=== PATIENT | male | born 1950 | race Caucasian/White ===

== ENCOUNTER → 2018-10-26 14:34 | Outpatient (CLI) | payer MEDICARE, SELFPAY ==
--- NOTE | 2018-10-26 | DI.RAD.S_ITS ---
PROCEDURE: XR CERVICAL SPINE 2V OR 3V INDICATIONS: RADICULOPATHY TECHNIQUE: 3 view(s) of the cervical spine were acquired. COMPARISON: None. FINDINGS: Bones: No fractures or dislocations to the T1 level. The lateral masses of C1 appear intact on the odontoid view. No suspicious bony lesions. C5-6 and C6-7 moderately severe degenerative disc disease, mild ligamentous laxity levels grade 1 anterolisthesis of C4 on C5. Soft tissues: No prevertebral soft tissue swelling. IMPRESSION: There is moderately severe to severe degenerative disc disease at C5-6 and C6-7, with grade 1 anterolisthesis of C4 on C5. Dictated by: Jareth Olea M.D. on 10/26/2018 at 15:46 Approved by: Jareth Olea M.D. on 10/26/2018 at 15:47
== END ==
PROVIDERS: PCP Family Medicine; Visit Provider Family Medicine
DX: M50.122 Cervical disc disorder at C5-C6 level with radiculopathy (principal); M43.12 Spondylolisthesis, cervical region
CPT/HCPCS: 72040

== ENCOUNTER → 2018-11-03 16:00 | Outpatient (CLI) | payer MEDICARE, SELFPAY ==
--- NOTE | 2018-11-03 | DI.MRI.S_ITS ---
PROCEDURE: MR CERVICAL SPINE WO CON INDICATIONS: RADICULOPATHY TECHNIQUE: Noncontrast sagittal T1 spin echo and T2 fast spin echo, sagittal STIR, foraminal oblique sagittal T2 fast spin echo, and axial gradient echo or T2 fast spin echo through the cervical spine. COMPARISON: None. FINDINGS: Image quality: Excellent. Alignment and Curvature: There is straightening and mild reversal of normal cervical lordosis. Minimal anterolisthesis of C4 on C5 is seen. Bone Marrow: Marrow demonstrates normal overall signal. Spinal Cord: Visualized spinal cord has normal size and signal. No cerebellar tonsillar herniation. Paraspinous Soft Tissues: No paravertebral masses. Prevertebral soft tissues are normal in thickness. C2-C3: Normal appearance. C3-C4: Diffuse disc bulge and bilateral facet hypertrophic changes are seen with mild central canal stenosis and right-sided neuroforaminal narrowing. C4-C5: There is decreased intervertebral disc space and degenerative endplate changes are noted. Broad-based disc bulge and bilateral facet hypertrophic changes are seen with mild to moderate bilateral neuroforaminal narrowing and mild central canal stenosis. C5-C6: There is significant decrease loss of the disc height and moderate degenerative endplate changes. Broad-based disc bulge and bilateral facet hypertrophic changes are seen. Superimposed left lateral disc herniation is also seen. There is moderate central canal stenosis and moderate to severe left worse than right bilateral neuroforaminal narrowing. There is likely compression of bilateral C6 nerve roots. C6-C7: Decreased intervertebral disc space and degenerative endplate changes are seen. Broad-based disc bulge and bilateral facet hypertrophic changes are seen causing moderate central canal stenosis and moderate to severe bilateral neuroforaminal narrowing. There is compression of bilateral exiting C7 nerve roots. C7-T1: There is decreased intervertebral disc height and degenerative endplate changes. A mild diffuse disc bulge and bilateral uncinate hypertrophic changes are seen with mild central canal stenosis and mild bilateral neural foramina narrowing. IMPRESSION: 1. Grade 1 anterolisthesis of C4 on C5. No acute compression fracture. No marrow edema. No abnormal cervical spinal cord signal. 2. Degenerative disc bulge and bilateral facet hypertrophic changes throughout cervical spine causing [id number] central canal stenosis and moderate to severe neuroforaminal narrowing more prominent at C5-6 and C6-7 level as above. Dictated by: Niranjan Dinero M.D. on 11/04/2018 at 10:02 Approved by: Niranjan Dinero M.D. on 11/04/2018 at 10:20
== END ==
PROVIDERS: PCP Family Medicine; Visit Provider Family Medicine
DX: M50.11 Cervical disc disorder with radiculopathy, high cervical region (principal); M48.02 Spinal stenosis, cervical region; M43.12 Spondylolisthesis, cervical region
CPT/HCPCS: 72141

== ENCOUNTER → 2019-02-18 15:08 | Outpatient (CLI) | payer MEDICARE, SELFPAY ==
--- NOTE | 2019-02-18 | DI.RAD.S_ITS ---
PROCEDURE: XR CHEST 2V INDICATIONS: ACUTE BRONCHITIS TECHNIQUE: 2 views of the chest were acquired. COMPARISON: None. FINDINGS: Surgical changes and devices: None. Lungs and pleura: Lungs are clear. No pleural effusions or pneumothorax. Mediastinum: Mediastinal contours are normal. Heart size is normal. Bones and chest wall: No suspicious bony abnormalities. Soft tissues appear unremarkable. IMPRESSION: No acute disease Dictated by: Alli Ackerman M.D. on 02/18/2019 at 15:29 Approved by: Alli Ackerman M.D. on 02/18/2019 at 15:31
== END ==
PROVIDERS: PCP Family Medicine; Visit Provider Family Medicine
DX: J20.9 Acute bronchitis, unspecified (principal)
CPT/HCPCS: 71046

== ENCOUNTER 2019-03-04 05:28 | Day surgery (SDC) | payer MEDICARE, SELFPAY ==
[2019-02-25 12:53] VITALS: BMI 29.2
[2019-03-04] VITALS (21 sets, daily range): BP systolic 109–147; BP diastolic 41–88; PULSE 59–102; RESP 10–19; TEMP 36.1–37.1; O2SAT 90–97; BMI 29.2
--- NOTE | 2019-03-04 | DI.RAD.S_ITS ---
PROCEDURE: XR CERVICAL SPINE 2V OR 3V INDICATIONS: C5-6, C6-7 ACDF TECHNIQUE: Fluoroscopic images were obtained during an operative procedure and submitted for interpretation following the completion of the procedure. COMPARISON: [facility], MR, MR CERVICAL SPINE WO CON, 11/03/2018, 16:56. [facility] [place], CR, XR CERVICAL SPINE WITH OBLIQUES, 11/23/2018, 15:40. [facility], CR, XR CERVICAL SPINE 2V OR 3V, 10/26/2018, 14:41. FINDINGS: These fluoroscopic images were performed for intraoperative localization. On these images, anterior fixation hardware is placed C5-C7. Please correlate with intraoperative findings. IMPRESSION: Normal intraoperative examination. Dictated by: Brock Tuttle M.D. on 03/04/2019 at 9:42 Approved by: Brock Tuttle M.D. on 03/04/2019 at 9:43
[2019-03-04] MEDS: LACTATED RINGERS 1,000 ML 42 ML IV ×2 (07:15→09:05)
[2019-03-04] MEDS: ALBUTEROL/IPRATROPIUM 3 ML AMPUL INH (07:40)
--- NOTE | 2019-03-04 07:42 | PM.PREOP ---
Pre-operative Note Interval Note History & Physical reviewed/Exam performed by Physician: Yes Changes to H&P: No
[2019-03-04] MEDS: CEFAZOLIN 2 GM/100 ML FROZ.PIGGY IV ×3 (07:52→23:58)
--- NOTE | 2019-03-04 08:29 | SUR.OPER ---
Supine, head on gel donut. Arms padded with gel pads, tucked at sides, towel roll under shoulders. Safety belt at thigh. Legs uncrossed.
[2019-03-04] MEDS: BUPIVACAINE 0.25% W/ EPI 30 ML VIAL INJ (08:36)
--- NOTE | 2019-03-04 09:14 | CM.IDA ---
Addendum entered by JOSE Cervantes 03/05/19 16:30: DC 03.05.19, home w/spouse, no barriers, therapy team has cleared for home. VIRGIL Original Note: Discharge Planning/Care Management CM Discharge Assessment Start: 03/04/19 09:10 Freq: Status: Active Protocol: Document 03/04/19 09:11 VIRGIL (Rec: 03/04/19 09:14 VIRGIL [id number]) Discharge Planning Assessment Assigned Registered Nurses JOSE Urrutia DPOA/Assigned Designee Name Geri Brown, spouse Contact Information [phone] or [phone] Advance Directives? No History Provided By Medical Record Prior Living Arrangements House Household Members spouse Type of transporation used prior to Drives own vehicle admit Independent with ADL's Yes Is patient alert and oriented? Yes Comment Pt off the floor today for spinal surgery w/ Dr Chavez. DC needs pending progress w/ therapy team and further assessment. Pt and spouse plan for pt to return home once medically cleared. Discharge Plan Home Transportation Arrangement Family Review Status In Process
--- NOTE | 2019-03-04 10:46 | P.OP_ITS ---
Operative Date/Time/Diagnoses Date of procedure: 03/04/19 Time of procedure: 07:46 Pre-op diagnosis: 1. C5-6, C6-7 spinal stenosis 2. C5-6, C6-7 spondylosis with radiculopathy Post-op diagnosis: same Procedure & Clinicians Procedure: 1. C5-6 C6-7 anterior cervical diskectomy and fusion 2. C5-6 C6-7 anterior interbody cage placement 3. C5-6 C6-7 anterior instrumentation with plate and screw placement in C5-C6 and C7 vertebrae 4. Utilization of microsurgical technique and operating microscope Same procedure as scheduled: Yes Indications: Patient has been having chronic neck pain and worsening cervical radiculopathy. Patient failed multiple conservative management with worsening pain weakness and numbness in her upper extremity. Patient has been having difficulty performing activity of daily living. After discussing risks benefits of treatment options, patient elected proceed with surgery. Surgeon: Carlos Alberto Chavez Supervisor Electronic Coils: Krupa Ibarra Click Yes if Unassisted: No Anesthesia Type: General Operative Notes Closure Type: primary Specimen(s): none sent Prosthetic devices, grafts, tissues, transplants, or devices: Globus revolve screws, Rise cages Estimated Blood Loss (mL): 20 Blood products transfused: none Procedure in detail: Patient was seen in the preoperative area. Risks and benefits of the surgery was discussed with the patient. Operative consent was obtained and placed in the chart. Patient was then taken to the operative room. Prophylactic antibiotic was given less than 0.5 hr prior to skin incision. General anesthesia was administered. Patient was placed into a supine position on her radiolucent table. Bilateral shoulders were taped down to allow proper C- arm imaging. Anterior cervical area was prepped and draped in a sterile fashion. Time-out was performed at this time. Using lateral C-arm imaging, the level between C5 and C7 was identified and marked on patient's neck. A oblique incision from midline towards medial border of sternocleidomastoid muscle was made. The platysma muscle was incised in line with skin incision. Metzenbaum scissor was used to develop the plane between the medial border of sternocleidomastoid d and the strap muscles medially. The carotid sheath and its contents were identified and protected behind the hand- held retractor during the entire case. The plane between the carotid sheath and strap muscles was developed with Metzenbaum scissors. Dissection was made down to the level of the anterior cervical fascia. Longus colli muscle was incised on the anterior aspect of vertebral bodies bilaterally from C5-C7. Spinal needle was placed into the C5-6 disc space and confirmed with lateral C-arm imaging. Using microsurgical technique and operative microscope, anterior cervical diskectomy was performed at C5-6 and C6-7 level. This was done by removing the disc material, removing the anterior and posterior osteophytes posterior longitudinal ligaments along with performing bilateral foraminotomies at both levels. Patient was found to have severe central and foraminal stenosis at both levels. Patient's stenosis was fully decompressed after decompression was completed. After the diskectomy was completed, 2 anterior interbody cages were obtained. The cages were packed with DBM bone grafting material. One cage each along with the bone grafting material was then packed into the interbody spaces from C5-C7 with one cage into each interbody level. After the cages were placed, the anterior cervical plate was stabilized to the C5-C7 vertebrae using 2 screws at each each level. Total 6 screws were placed. After confirming placement of the hardware with AP and lateral C-arm imaging, the screws were locked into the plate using the locking mechanism and torque limiting screwdriver. After the hardware was placed and confirmed with AP and lateral C-arm imaging, the wound was irrigated with sterile normal saline. The platysma muscle and the subcutaneous tissue was closed with 2-0 Vicryl. The skin was closed with 4-0 Monocryl and Steri-Strips. Patient tolerated the procedure well. Patient was transferred recovery room in stable condition. There were no complications. Complications: none Post-operative Condition: stable Disposition: PACU Plan for aftercare: Admit to inpatient hospital
[2019-03-04] MEDS: ALBUTEROL 2.5 MG/3 ML NEB (ADULT) INH (10:57)
[2019-03-04] MEDS: HYDROMORPHONE 2 MG INJ IV ×4 (11:06→11:55)
[2019-03-04] MEDS: hydrOXYzine 50 MG/ML INJ 25 MG IM (11:13)
--- NOTE | 2019-03-04 11:38 | SUR.PHASEI ---
Pt arrived restless, changing positions frequently independently. Medicated for pain. Lungs congested, Dr. Toussaint notified and albuterol neb ordered and given. Lungs still congested, Dr. Toussaint notified.
--- NOTE | 2019-03-04 12:01 | SUR.PHASEI ---
Report given to Mey
--- NOTE | 2019-03-04 12:03 | SUR.PHASEI ---
Asssumed care of pt at this time. Pt sitting up in bed, alert and responding to RN when spoken to. Drsg observed to be c/d/i. Cervical collar in place. Iv site clear and infusing without difficultly.
--- NOTE | 2019-03-04 12:34 | SUR.PHASEI ---
Report called to ZACK Deleon on acute care floor. pt in stable condition, vss and being transferred to floor at this time.
--- NOTE | 2019-03-04 12:46 | SUR.PHASEI ---
pt transferred to acute care floor. pt alert and talking to RN during transport. Bedside report given to ZACK Deleon upon arrival to room. Transferred care of pt to ZACK Deleon at that time.
[2019-03-04] MEDS: OXYCODONE IR 5 MG TABLET 10 MG PO ×2 (13:32→19:41)
[2019-03-04] MEDS: hydrOXYzine pamoate 25 MG CAPSULE PO ×2 (13:33→22:27)
[2019-03-04] MEDS: SODIUM CHLORIDE 0.9% 1,000 ML 100 ML IV (13:34)
--- NOTE | 2019-03-04 16:59 | PT.IIE ---
Current Diagnoses Spinal stenosis, cervical region (03/04/19) Other biomechanical lesions of cervical region (03/04/19) Surgery Performed Operation Date: 03/04/19 07:45 Actual Procedures p C5-6,C6-7 ACDF w/ anterior instrumentation - Carlos Alberto Chavez MD Surgical History (Last Updated 02/25/19 @ 13:16 by Hazel Dumont, RN) History of ankle surgery (Acute ~2005) Hx of hernia repair (Acute ~1996) Hx of lithotripsy (Acute ~1986) Medical History (Last Updated 02/25/19 @ 13:16 by Hazel Dumont RN) Anxiety (Acute) Asthma (Acute) Depression (Acute) Folliculitis (Acute) HLD (hyperlipidemia) (Acute) HTN (hypertension) (Acute) Hypothyroid (Acute) Kidney stone (Acute ~1986) Sciatica (Acute) Tingling (Acute) Physical Therapy Inpatient Evaluation/Re-Eval M1 PT/OT-IP Prior Functional Status Start: 03/04/19 14:56 Freq: NEEDED Status: Active Protocol: Document 03/04/19 16:42 AW (Rec: 03/04/19 16:58 AW [id number]) Medical Review Prior Functional Status Medical History Reviewed Yes Diet/Fluid Consistency Regular Communication Able to make needs known Mobility and Gait Pt was independent with all mobility, no need for assistive device and no limit to ambulation distance. Activities of Daily Living and IADL's Independent Social History Household Members spouse Living Arrangements House Number of Floors (Floors) Two Floors Number of Stairs To Enter/Railing? 13 BASIL with narrow bilateral rails. 17 steps from main level to second level inside with R rail ascending Home Environment Standard Height Toilet,Walk in Shower,Tub/Shower Home Equipment Hand Held Shower,Grab Bars In Shower Employment Status Retired Additional Social History Comment Pt lives with his spouse who is able and available to assist 24/7 as needed M2 PT-IP Current Condition Start: 03/04/19 14:56 Freq: NEEDED Status: Active Protocol: Document 03/04/19 16:42 AW (Rec: 03/04/19 16:58 AW [id number]) Physical Therapy Current Condition Current Condition Evaluation Date 03/04/19 Treatment Diagnosis C5-6 C6-7 ACDF, impaired mobility Onset Date 03/04/19 Precautions Cervical Spine Precautions Soft Collar for Comfort,No Heavy Lifting,Log Roll Brace soft collar Weight Bearing Status Weight Bearing Status Full Weight Bearing M3 PT-IP Subjective Start: 03/04/19 14:56 Freq: NEEDED Status: Active Protocol: Document 03/04/19 16:42 AW (Rec: 03/04/19 16:58 AW [id number]) Subjective Physical Therapy Visit Type Type Initial Evaluation Visit Start Time 16:00 Visit Stop Time 16:36 Total Visit Minutes 36 Notes Pt seen with spouse at bedside Number of BELT REPAIRER Visits 0 Physical Therapy Visit Comments Patient Comments Pt anxious to get moving Patient Goals Pt wishes to discharge home with his 's help Therapy Pain Assessment Pain When Pain Assessed During Mobility Pain Present Pain Present Pain Reported Location Neck, shoulders Intensity 3 Scale Used Numeric (1 - 10) Pain Management Techniques Re-positioning,Timing of Activity with Medications M4 PT-IP Mobility and Gait Start: 03/04/19 14:56 Freq: NEEDED Status: Active Protocol: Document 03/04/19 16:42 AW (Rec: 03/04/19 16:58 AW [id number]) PT-Bed Mobility Assessment Rolling Type of Rolling Log Rolling Level of Assist Independent Supine to Sit Supine to Sit Independent Sit to Supine Sit to Supine Independent Scooting Scooting to Edge of Bed Independent PT-Transfer Assessment Sit to and From Stand Sit to and from Stand Standby Assistance Equipment Transfer Assistive Device Gait Belt Orthotic/Prosthetic Devices or Brace: Yes Transfers Transfer Destination Bed,Chair Transfer Technique pt ambulated without AD Transfer Ability Level of Assist Standby Assistance Comments Mobility Comments Pt required SBA for transfers due to impulsivity. Pt is extremely garrulous and easily distracted. Gait Assessment Gait Gait Assistance Required: Standby Assistance Distance (Feet) 220 Able to Maintain Weight Bearing Status Yes During Gait Assistive Devices Assistive Device Gait Belt Orthotic/Prosthetic Devices or Brace: Yes Gait Deviations General Gait Pattern Antalgic,Decreased Stride Length,Decreased Feet Clearance,Wide Based Gait Factors Limiting Gait Function Factors Limiting Gait Function Pain,Poor Safety Awareness Comments Gait Comments Pt required SBA for ambulation 220 feet without assistive device. He did demonstrate good attention to precautions, including avoiding excessive cervical range of motion. Stair Climbing Assessment Evaluation Level of Assist On Stairs Standby Assistance Devices Stair Climbing Assistive Devices Left Railing,Right Railing Technique/Endurance Stair Climbing Direction Ascend and Descend Stair Climbing Technique Step Over Step Number of Steps Climbed 3 Query Text: Stair Climbing Set # Repetitions (reps) 5 Comments Stair Climbing Comments Pt managed stairs with bilateral rails and with R rail only SBA. PT-Balance Assessment Sitting Balance and Reactions Static Sitting Balance Ability Normal Dynamic Sitting Balance Ability Normal Standing Balance and Reactions Static Standing Balance Ability Good Dynamic Standing Balance Ability Good Device Used none M5 PT-IP Objective Assessments Start: 03/04/19 14:56 Freq: NEEDED Status: Active Protocol: Document 03/04/19 16:42 AW (Rec: 03/04/19 16:58 AW [id number]) Orientation Orientation/Cognition Level of Alertness Alert Orientation Name,Day of Week,Place, Situation Language Function Ability No Deficits Noted Safety Awareness Decreased Safety Awareness Memory Description No Deficits Noted Gross Range of Motion Upper Extremity ROM Assessment Within Functional Limits Lower Extremity ROM Assessment Within Functional Limits Strength Upper Extremity Strength Assessment Left Impaired Hand unable to extend 3rd, 4th digits left hand Lower Extremity Strength Assessment Within Functional Limits Coordination Assessment Gross Coordination Gross Coordination WNL Sensation Assessment Sensation Gross Sensation WNL M6 PT-IP Treatment Start: 03/04/19 14:56 Freq: NEEDED Status: Active Protocol: Document 03/04/19 16:42 AW (Rec: 03/04/19 16:58 AW [id number]) Physical Therapy Treatment Education Education Provided Precautions,Weight Bearing Status,Post-Op Packet,Safety Brace Education [place],Patient, Caregiver Other Treatments Other Treatment Performed Reviewed PT plan of care, swallow considerations (with handout), cervical precautions , safety with stair management , and rationale for soft collar. M7 PT-IP Assessment and Plan Start: 03/04/19 14:56 Freq: NEEDED Status: Active Protocol: Document 03/04/19 16:42 AW (Rec: 03/04/19 16:58 AW [id number]) PT Summary Assessment and Plan Potential Rehabilitation Potential Excellent Status of Condition at Evaluation Evolving Summary Impairments Pain,ROM,Strength,Transfers, Gait Assessment Summary Pt is an active 68 yo man seen for PT evaluation on POD0 following ACDF. PLOF: Pt was independent in all regards. CLOF: Pt presents with impulsivity and poor safety awareness. This therapist found the patient standing next to his chair after discussing with him the need to use his call light for all mobility needs. In terms of mobility, pt required no more than SBA and PT anticipates he will meet the functional goals of this plan of care and safely discharge home with spouse assist once medically cleared. Goals Bed Mobility Goal Independent Transfer Goal Independent Gait Goal Independent Gait Distance 300 Other Goals up/down 17 steps with R rail ascending SBA Days to Meet Goals 1 Frequency of Treatment Frequency Of Treatment Twice a Day Treatment Plan Physical Therapy Treatment Plan Bed Mobility Training,Transfer Training,Gait Training, Therapeutic Exercise,Balance Retraining,Post Op Education, Discharge Planning,Hot or Cold Pack Recommendations To Nursing Amount of Assist Needed Standby Assistance Discharge Recommendations PT Discharge Recommendations Home with Assistance, Outpatient PT
--- NOTE | 2019-03-04 17:03 | PT.IIE ---
Current Diagnoses Spinal stenosis, cervical region (03/04/19) Other biomechanical lesions of cervical region (03/04/19) Surgery Performed Operation Date: 03/04/19 07:45 Actual Procedures p C5-6,C6-7 ACDF w/ anterior instrumentation - Carlos Alberto Chavez MD Surgical History (Last Updated 02/25/19 @ 13:16 by Hazel Dumont, RN) History of ankle surgery (Acute ~2005) Hx of hernia repair (Acute ~1996) Hx of lithotripsy (Acute ~1986) Medical History (Last Updated 02/25/19 @ 13:16 by Hazel Dumont RN) Anxiety (Acute) Asthma (Acute) Depression (Acute) Folliculitis (Acute) HLD (hyperlipidemia) (Acute) HTN (hypertension) (Acute) Hypothyroid (Acute) Kidney stone (Acute ~1986) Sciatica (Acute) Tingling (Acute) Physical Therapy Inpatient Evaluation/Re-Eval M1 PT/OT-IP Prior Functional Status Start: 03/04/19 14:56 Freq: NEEDED Status: Active Protocol: Document 03/04/19 16:42 AW (Rec: 03/04/19 16:58 AW [id number]) Medical Review Prior Functional Status Medical History Reviewed Yes Diet/Fluid Consistency Regular Communication Able to make needs known Mobility and Gait Pt was independent with all mobility, no need for assistive device and no limit to ambulation distance. Activities of Daily Living and IADL's Independent Social History Household Members spouse Living Arrangements House Number of Floors (Floors) Two Floors Number of Stairs To Enter/Railing? 13 BASIL with narrow bilateral rails. 17 steps from main level to second level inside with R rail ascending Home Environment Standard Height Toilet,Walk in Shower,Tub/Shower Home Equipment Hand Held Shower,Grab Bars In Shower Employment Status Retired Additional Social History Comment Pt lives with his spouse who is able and available to assist 24/7 as needed M2 PT-IP Current Condition Start: 03/04/19 14:56 Freq: NEEDED Status: Active Protocol: Document 03/04/19 16:42 AW (Rec: 03/04/19 16:58 AW [id number]) Physical Therapy Current Condition Current Condition Evaluation Date 03/04/19 Treatment Diagnosis C5-6 C6-7 ACDF, impaired mobility Onset Date 03/04/19 Precautions Cervical Spine Precautions Soft Collar for Comfort,No Heavy Lifting,Log Roll Brace soft collar Weight Bearing Status Weight Bearing Status Full Weight Bearing M3 PT-IP Subjective Start: 03/04/19 14:56 Freq: NEEDED Status: Active Protocol: Document 03/04/19 16:42 AW (Rec: 03/04/19 16:58 AW [id number]) Subjective Physical Therapy Visit Type Type Initial Evaluation Visit Start Time 16:00 Visit Stop Time 16:36 Total Visit Minutes 36 Notes Pt seen with spouse at bedside Number of PHYSICIAN GENERAL INTERNAL MEDICINE Visits 0 Physical Therapy Visit Comments Patient Comments Pt anxious to get moving Patient Goals Pt wishes to discharge home with his 's help Therapy Pain Assessment Pain When Pain Assessed During Mobility Pain Present Pain Present Pain Reported Location Neck, shoulders Intensity 3 Scale Used Numeric (1 - 10) Pain Management Techniques Re-positioning,Timing of Activity with Medications M4 PT-IP Mobility and Gait Start: 03/04/19 14:56 Freq: NEEDED Status: Active Protocol: Document 03/04/19 16:42 AW (Rec: 03/04/19 16:58 AW [id number]) PT-Bed Mobility Assessment Rolling Type of Rolling Log Rolling Level of Assist Independent Supine to Sit Supine to Sit Independent Sit to Supine Sit to Supine Independent Scooting Scooting to Edge of Bed Independent PT-Transfer Assessment Sit to and From Stand Sit to and from Stand Standby Assistance Equipment Transfer Assistive Device Gait Belt Orthotic/Prosthetic Devices or Brace: Yes Transfers Transfer Destination Bed,Chair Transfer Technique pt ambulated without AD Transfer Ability Level of Assist Standby Assistance Comments Mobility Comments Pt required SBA for transfers due to impulsivity. Pt is extremely garrulous and easily distracted. Gait Assessment Gait Gait Assistance Required: Standby Assistance Distance (Feet) 220 Able to Maintain Weight Bearing Status Yes During Gait Assistive Devices Assistive Device Gait Belt Orthotic/Prosthetic Devices or Brace: Yes Gait Deviations General Gait Pattern Antalgic,Decreased Stride Length,Decreased Feet Clearance,Wide Based Gait Factors Limiting Gait Function Factors Limiting Gait Function Pain,Poor Safety Awareness Comments Gait Comments Pt required SBA for ambulation 220 feet without assistive device. He did demonstrate good attention to precautions, including avoiding excessive cervical range of motion. BP 154/93 in sitting, 149/81 after activity. SpO2 on 4L via NC was 96%. On 2L, SpO2 was 94%. Left pt sitting up in chair. Notified RN of VS and suggested a chair alarm may be appropriate for this pt. Left pt up in chair with at bedside, call light and table within reach. Stair Climbing Assessment Evaluation Level of Assist On Stairs Standby Assistance Devices Stair Climbing Assistive Devices Left Railing,Right Railing Technique/Endurance Stair Climbing Direction Ascend and Descend Stair Climbing Technique Step Over Step Number of Steps Climbed 3 Query Text: Stair Climbing Set # Repetitions (reps) 5 Comments Stair Climbing Comments Pt managed stairs with bilateral rails and with R rail only SBA. PT-Balance Assessment Sitting Balance and Reactions Static Sitting Balance Ability Normal Dynamic Sitting Balance Ability Normal Standing Balance and Reactions Static Standing Balance Ability Good Dynamic Standing Balance Ability Good Device Used none M5 PT-IP Objective Assessments Start: 03/04/19 14:56 Freq: NEEDED Status: Active Protocol: Document 03/04/19 16:42 AW (Rec: 03/04/19 16:58 AW [id number]) Orientation Orientation/Cognition Level of Alertness Alert Orientation Name,Day of Week,Place, Situation Language Function Ability No Deficits Noted Safety Awareness Decreased Safety Awareness Memory Description No Deficits Noted Gross Range of Motion Upper Extremity ROM Assessment Within Functional Limits Lower Extremity ROM Assessment Within Functional Limits Strength Upper Extremity Strength Assessment Left Impaired Hand unable to extend 3rd, 4th digits left hand Lower Extremity Strength Assessment Within Functional Limits Coordination Assessment Gross Coordination Gross Coordination WNL Sensation Assessment Sensation Gross Sensation WNL M6 PT-IP Treatment Start: 03/04/19 14:56 Freq: NEEDED Status: Active Protocol: Document 03/04/19 16:42 AW (Rec: 03/04/19 16:58 AW [id number]) Physical Therapy Treatment Education Education Provided Precautions,Weight Bearing Status,Post-Op Packet,Safety Brace Education [place],Patient, Caregiver Other Treatments Other Treatment Performed Reviewed PT plan of care, swallow considerations (with handout), cervical precautions , safety with stair management , and rationale for soft collar. M7 PT-IP Assessment and Plan Start: 03/04/19 14:56 Freq: NEEDED Status: Active Protocol: Document 03/04/19 16:42 AW (Rec: 03/04/19 16:58 AW [id number]) PT Summary Assessment and Plan Potential Rehabilitation Potential Excellent Status of Condition at Evaluation Evolving Summary Impairments Pain,ROM,Strength,Transfers, Gait Assessment Summary Pt is an active 68 yo man seen for PT evaluation on POD0 following ACDF. PLOF: Pt was independent in all regards. CLOF: Pt presents with impulsivity and poor safety awareness. This therapist found the patient standing next to his chair after discussing with him the need to use his call light for all mobility needs. In terms of mobility, pt required no more than SBA and PT anticipates he will meet the functional goals of this plan of care and safely discharge home with spouse assist once medically cleared. Goals Bed Mobility Goal Independent Transfer Goal Independent Gait Goal Independent Gait Distance 300 Other Goals up/down 17 steps with R rail ascending SBA Days to Meet Goals 1 Frequency of Treatment Frequency Of Treatment Twice a Day Treatment Plan Physical Therapy Treatment Plan Bed Mobility Training,Transfer Training,Gait Training, Therapeutic Exercise,Balance Retraining,Post Op Education, Discharge Planning,Hot or Cold Pack Recommendations To Nursing Amount of Assist Needed Standby Assistance Discharge Recommendations PT Discharge Recommendations Home with Assistance, Outpatient PT
[2019-03-04] MEDS: ATORVASTATIN 20 MG TABLET 40 MG PO (20:35)
[2019-03-04] MEDS: LEVOTHYROXINE 50 MCG TABLET PO (20:36)
[2019-03-04] MEDS: FLUoxetine 20 MG CAPSULE 40 MG PO (20:36)
[2019-03-04] MEDS: hydroCHLOROthiazide 25 MG TABLET PO (20:38)
[2019-03-04] MEDS: LISINOPRIL 20 MG TABLET PO (20:39)
[2019-03-05] MEDS: OXYCODONE IR 5 MG TABLET 10 MG PO ×3 (00:01→09:17)
[2019-03-05] MEDS: SODIUM CHLORIDE 0.9% 1,000 ML 100 ML IV (00:08)
[2019-03-05] MEDS: ALBUTEROL 2.5 MG/3 ML NEB (ADULT) INH ×2 (00:28→09:27)
[2019-03-05 00:30] VITALS: PULSE 91; RESP 16; O2SAT 97
--- NOTE | 2019-03-05 02:25 | PC.NURSE ---
Addendum entered by Bailey Martinez R.N. 03/05/19 05:34: States pain is now increased to 6/10 so medicated with Vistaril. Offered ice pack but patient declines. Addendum entered by Bailey Martinez R.N. 03/05/19 04:31: Patient states he was able to sleep for past couple hours but now states pain is 5/10 and requests/medicated with Oxycodone. Original Note: 0010 Patient is alert and oriented. Breath sounds tight and diminished with expiratory wheezes throughout; RA sat 96% Coughing intermittently which is exacerbating his pain. Requests to have albuterol neb so Dr Albright contacted and order received for neb and RT to eval and treat. HRR but intermittently tachy; 102 earlier and now 99. Denies nausea. Denies difficulty swallowing. Complains of 8/10 pain in anterior neck; medicated with Oxycodone. Dressing with serosanguinous drainage but no leakage; wearing soft cervical collar. BT present but denies flatus. Independent with mobility. Voiding per urinal; denies dysuria, frequency or urgency. Refusing to wear SCD's despite information regarding DVT prevention; reminded to ankle wave when awake. Fall risk score is low
[2019-03-05 04:40] VITALS: BP 116/74; PULSE 85; RESP 18; TEMP 36.6; O2SAT 95
[2019-03-05] MEDS: hydrOXYzine pamoate 25 MG CAPSULE PO (05:33)
--- NOTE | 2019-03-05 08:13 | P.DS_ITS ---
History of Present Illness History of Present Illness Date Patient Seen: 03/05/19 Time Patient Seen: 08:00 Chief complaint: [id number] Narrative: Patient has been having chronic neck pain and worsening cervical radiculopathy. Patient failed multiple conservative management with worsening pain weakness and numbness in her upper extremity. Patient has been having difficulty performing activity of daily living. After discussing risks benefits of treatment options, patient elected proceed with surgery. POD 1 s/p ACDF with Dr. Chavez. Patient complains of pain in incision site. Pain is well managed. Mobilizing with PT. Voiding without difficulty or assistance. No other complaints Patient denies fever, chills, numbness, tingling, chest pain, shortness of breath, urinary/bowel incontinence. Discharge Providers Provider Date of admission: 03/04/19 05:28 Discharge Date: 03/05/19 Primary care physician: Kashif Evangelista MD Consults: 03/04/19 12:58 Consult to Occupational Therapy Evaluate & Treat Comment: Physician Instructions: Evaluate and treat Consult to Physical Therapy Evaluate & Treat Comment: Physician Instructions: Evaluate and Treat 03/05/19 00:13 Consult to Respiratory Therapy Evaluate & Treat Comment: Physician Instructions: Evaluate and treat Discharge provider: Ang Elias PA-C Summary Hospital Course Discharge Diagnosis: s/p ACDF anxiety asthma depression folliculitis HLD HTN Hypothyroid Kidney stone Sciatica Tingling Hospital Course: Patient admitted to hosptial s/p ACDF w Dr. Chavez. POD 1 patient was ready for discharge home. Hospital course was unremarkable. Pain was well managed. Given prescriptions for vistaril, oxycodone and naproxen. Patient mobilizing with PT prior to discharge. Voiding without difficulty or assistance prior to discharge. Status at Discharge Cognitive/behavioral status at discharge: oriented Functional status at discharge: uses cane/walker Overall status at discharge: patient is progressing back to baseline Time Spent with Patient Time spent: Less than 30 minutes Exam Vital Signs (past 8 hours): - 03/05/19 00:30 03/05/19 04:40 Temperature 97.9 F Pulse Rate 91 H 85 Respiratory Rate 16 18 Blood Pressure 116/74 Pulse Oximetry 97 95 Oxygen Delivery Method Room Air Oxygen Flow Rate 0 Narrative Exam Narrative: 68 year old male sitting comfortably in bed, in no apparent distress. A&Ox3. anterior neck dressing CDI. sensory function grossly intact to light touch in UE bl. full AROM, strength 5/5 UE bl. Discharge Plan Discharge Plan Patient Disposition: Home Discharge Med Rec/Prescriptions Prescriptions: New oxycodone 10 mg tablet 10 mg PO Q4-6H PRN (Reason: pain (scale score 7-10)) Qty: 60 RF: 0 hydroxyzine pamoate [Vistaril] 25 mg capsule 25 mg PO Q6-8H PRN (Reason: muscle spasm) Qty: 40 RF: 0 naproxen 500 mg tablet 500 mg PO BID Qty: 60 RF: 0 Continued fluoxetine [Prozac] 40 mg Capsule 40 mg PO BEDTIME RF: 0 atorvastatin 40 mg Tablet 40 mg PO BEDTIME RF: 0 levothyroxine [Synthroid] 50 mcg Tablet 50 mcg PO BEDTIME RF: 0 lisinopril-hydrochlorothiazide 20-25 mg Tablet 1 tab PO BEDTIME RF: 0 Symbicort 80-4.5 mcg/actuation Hfa Aerosol Inhaler 2 puff INHALATION BID RF: 0 Discontinued ibuprofen 200 mg Tablet 400 mg PO Q6H PRN (Reason: Pain) RF: 0 Follow up/Referrals: Carlos Alberto Chavez MD [Physician] - 03/17/19 4:00 pm (Both follow up apoontments are at the [facility] office in [place] 04/07 1:20pm [facility] office) Kashif Evangelista MD [Primary Care Provider] - Discharge Orders: Discharge (Order); Ordered 03/05/19 Ordered By: Reza Elias Provider Discharge Instructions Diet: Regular Activity: no excessive bending, twisting, lifting Cold/Heat Therapy: continue cold/heat therapy as needed Skin/Wound/Dressing Care Report to your healthcare provider any signs of infection, such as:: chills, fever, increased pain, unusual drainage and unusual redness Dressing: keep dressing dry. if saturated, contact the office Visit Report/Discharge Packet Instructions: How to Prevent Falls, DI for Postoperative Pain, DI for Anterior Cervical Discectomy and Fusion Stand Alone Forms: Surgery Discharge Visit Report Forms: Patient Portal/API, Stroke Signs & Symptoms Discharge Data Primary Care Provider: Kashif Evangelista Attending Provider: Carlos Alberto Chavez Discharges patient from system. Discharge Date/Time: 03/05/19 11:21
[2019-03-05 08:25] VITALS: BP 125/80; PULSE 100; RESP 18; TEMP 36.6; O2SAT 95
[2019-03-05] MEDS: ALBUTEROL/IPRATROPIUM 3 ML AMPUL INH (09:18)
[2019-03-05 09:20] VITALS: PULSE 95; RESP 16; O2SAT 92
--- NOTE | 2019-03-05 10:02 | OT.IP.EVAL ---
Current Diagnoses Spinal stenosis, cervical region (03/04/19) Other biomechanical lesions of cervical region (03/04/19) Surgery Performed Operation Date: 03/04/19 07:45 Actual Procedures p C5-6,C6-7 ACDF w/ anterior instrumentation - Carlos Alberto Chavez MD Past Medical History (Last Updated 02/25/19 @ 13:16 by Hazel Dumont RN) Anxiety (Acute) Asthma (Acute) Depression (Acute) Folliculitis (Acute) HLD (hyperlipidemia) (Acute) HTN (hypertension) (Acute) Hypothyroid (Acute) Kidney stone (Acute ~1986) Sciatica (Acute) Tingling (Acute) Surgical History (Last Updated 02/25/19 @ 13:16 by Hazel Dumont, RN) History of ankle surgery (Acute ~2005) Hx of hernia repair (Acute ~1996) Hx of lithotripsy (Acute ~1986) Occupational Therapy Inpatient Evaluation/Re-Eval M1 PT/OT-IP Prior Functional Status Start: 03/05/19 12:14 Freq: NEEDED Status: Active Protocol: Document 03/05/19 10:02 [facility] (Rec: 03/05/19 12:27 [facility] [id number]) Medical Review Prior Functional Status Medical History Reviewed Yes Diet/Fluid Consistency Regular Communication Able to make needs known Mobility and Gait Pt was independent with all mobility, no need for assistive device and no limit to ambulation distance. Activities of Daily Living and IADL's Independent Social History Household Members spouse Living Arrangements House Number of Floors (Floors) Two Floors Number of Stairs To Enter/Railing? 13 BASIL with narrow bilateral rails. 17 steps from main level to second level inside with R rail ascending Home Environment Standard Height Toilet,Walk in Shower,Tub/Shower Home Equipment Hand Held Shower,Grab Bars In Shower Employment Status Retired Additional Social History Comment Pt lives with his spouse who is able and available to assist / as needed M2 OT-IP Current Condition Start: 03/05/19 12:14 Freq: Status: Active Protocol: Document 03/05/19 10:02 [facility] (Rec: 03/05/19 12:27 [facility] [id number]) Occupational Therapy Current Condition Current Condition Evaluation Date 03/05/19 Treatment Diagnosis s/p C5-6, C6-7 ACDF with ant instr. Diagnosis Onset Date 03/04/19 Post Operative Precautions Cervical Spine Precautions Soft Collar for Comfort,No Heavy Lifting,Log Roll M3 OT- IP Subjective and Pain Start: 03/05/19 12:14 Freq: Status: Active Protocol: Document 03/05/19 10:02 [facility] (Rec: 03/05/19 12:27 [facility] [id number]) OT- Subjective Occupational Therapy Visit Type Type Initial Evaluation Visit Start Time 10:02 Visit Stop Time 10:20 Total Visit Minutes 18 Occupational Therapy Visit Comments Patient Comments Pt willing to do OT eval. Patient/Caregiver Goals To go home. OT Pain Assessment Pain When Pain Assessed At Rest Pain Present Pain Present Pain Reported Location Neck Intensity 5 Scale Used Numeric (1 - 10) M4 OT- IP ADL's Start: 03/05/19 12:14 Freq: Status: Active Protocol: Document 03/05/19 10:02 [facility] (Rec: 03/05/19 12:27 [facility] [id number]) OT ADL-Grooming General Evaluation Grooming Ability Independent,Standby Assistance Comments OT Grooming Comments Pt able to david/ doff soft collar with good safety. Pt just needing vc to be careful when trying to wash his neck as rubbing on the dressing which was coming up on the edges. OT ADL-Dressing Comments OT Dressing Comments Pt already dressed, pt states can assist him at needed. OT ADL-Toileting Comments OT Toileting Comments Pt did not have to use the toilet. OT ADL-Bathing Comments OT Bathing Comments Pt states to shower at home. M5 OT- IP IADL's Start: 03/05/19 12:14 Freq: Status: Active Educated for pt to eat softer food initially, sit upright, and take his time while eating. Review swallowing information with the . Protocol: Document 03/05/19 10:02 [facility] (Rec: 03/05/19 12:27 [facility] [id number]) OT-Instrumental Activities of Daily Living Home Safety Awareness Home Safety Comments Pt aware that will assist him with IADl and ADL's as needed. M6 OT- IP Functional Cognition Start: 03/05/19 12:14 Freq: Status: Active Protocol: Document 03/05/19 10:02 [facility] (Rec: 03/05/19 12:27 [facility] [id number]) Cognitive Factors Limiting Selfcare Function Cognitive Ability Level of Alertness Alert Patient Orientation Name,Place,Situation Attention Span Ability Capable of Focused Attention, Capable of Sustained Attention Ability to Follow Commands Able to Follow One Step Commands Safety Awareness Underestimates Need for Assistance Executive Function Ability Unable to Filter Distractions Cognitive Comments Cognitive Assessment Comments Pt highly distracted and needing vc to slow down and think things through. OT- Vision and Hearing OT- Hearing Assessment OT- Hearing Assessment WFL M7 OT- IP Mobility and Balance Start: 03/05/19 12:14 Freq: Status: Active Protocol: Document 03/05/19 10:02 [facility] (Rec: 03/05/19 12:27 [facility] [id number]) OT-Transfer Assessment Sit to and From Stand Sit to and from Stand Standby Assistance Transfers Transfer Ability Standby Assistance Technique Transfer Destination Bed,Chair Comments Mobility Comments VC to slow down. Pt not having to use any device at this time. OT- Balance Assessment Sitting Balance and Reactions Static Sitting Balance Ability Normal Dynamic Sitting Balance Ability Normal Standing Balance and Reactions Static Standing Balance Ability Normal M8 OT- IP Objective Assessments Start: 03/05/19 12:14 Freq: Status: Active Protocol: Document 03/05/19 10:02 [facility] (Rec: 03/05/19 12:27 [facility] [id number]) OT Strength Upper Extremity Strength Assessment Left Impaired Comments Strength Comments Left 3rd and 4th digit 3-/5 for finger extension, 3+/5 for flexion. Encouraged pt to continue to use his hand as needed. Educated pt to not hyperextend his joints as pt is very determined to get his hand better faster. M9 OT- IP Assessment and Plan Start: 03/05/19 12:14 Freq: Status: Active Protocol: Document 03/05/19 10:02 [facility] (Rec: 03/05/19 12:27 [facility] [id number]) OT Summary Assessment and Plan Potential Rehabilitation Potential Good Analytic Complexity at Evaluation Low Summary OT Impairments Strength,Bathing Progress Towards Goals Progressing Toward Goals Assessment Summary Pt low complexity and doing well and to go home today. Pt mainly needing to slow down, decreased safety awareness, and will benefit from to assist as needed and cue him to slow down and follow his precautions. Goals Patient/Caregiver Education Goal Demonstrate Post-Op Precautions,Caregiver Independent Assisting Patient Days to Meet Goals 1 Frequency of Treatment Frequency Of Treatment Once a Day Treatment Plan OT Treatment Plan Patient/Family Education, Discharge Planning Discharge Recommendations OT Discharge Recommendations Home with Assistance
--- NOTE | 2019-03-05 11:37 | PC.NURSE ---
Day Shift- Pt oriented X4, able to make needs known using call light, pt's at bedside. Pain 9/10 to anterior neck and extending posterior, radiating to almost shoulders bilaterally. Pain management plan discussed. PRN med given at 0920 with good effect. Pt states using incentive spirometer induces coughing which causes increased neck pain. Soft collar in place. Pt does continue to use incentive spirometer. Surgical neck dressing changed per verbal oder by FLORINDA Cobb this AM. old dressing removed, steri-strips in place, purple bruising noted distal of incision. folded 4X4 gauze and tegaderm dressing applied. Pt tolerated well. Encouraged pt to have soft foods, easy to chew, small bites and chew really well. No swallowing issues at this time. Took pills whole with water without difficulty. Discharge summary packet reviewed with pt and his from [id number]. Pt was making jokes while trying to explain discharge information. Pleasantly. No voiced concerns. Explained over the counter stool softeners if needed while taking narcotic pain medications. Encouraged drinking water to prevent constipation. Pt stated had all belongings. Pt left unit at 1121 via wheelchair in no distress with [employer] escort and pt's to drive pt home.
--- NOTE | 2019-03-05 11:47 | PT.IPTN ---
Current Diagnoses Spinal stenosis, cervical region (03/04/19) Other biomechanical lesions of cervical region (03/04/19) Surgery Performed Operation Date: 03/04/19 07:45 Actual Procedures p C5-6,C6-7 ACDF w/ anterior instrumentation - Carlos Alberto Chavez MD Physical Therapy Treatment Note M2 PT-IP Current Condition Start: 03/04/19 14:56 Freq: NEEDED Status: Discharge Protocol: Document 03/04/19 16:42 AW (Rec: 03/04/19 16:58 AW [id number]) Physical Therapy Current Condition Current Condition Evaluation Date 03/04/19 Treatment Diagnosis C5-6 C6-7 ACDF, impaired mobility Onset Date 03/04/19 Precautions Cervical Spine Precautions Soft Collar for Comfort,No Heavy Lifting,Log Roll Brace soft collar Weight Bearing Status Weight Bearing Status Full Weight Bearing M3 PT-IP Subjective Start: 03/04/19 14:56 Freq: NEEDED Status: Discharge Protocol: Document 03/05/19 10:24 JG (Rec: 03/05/19 11:30 JG [id number]) Subjective Physical Therapy Visit Type Type Treatment Note Visit Start Time 10:24 Visit Stop Time 10:35 Total Visit Minutes 11 Notes Tx led by SPT Renata, supervised by PT Babar 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 I have been practicing my breathing. Patient Goals Return home Therapy Pain Assessment Pain When Pain Assessed At Rest Pain Present Pain Present Pain Reported Location Neck Intensity 5 Scale Used Numeric (1 - 10) Description Acute,Sharp,With Movement Pain Management Techniques Distraction,Timing of Activity with Medications M4 PT-IP Mobility and Gait Start: 03/04/19 14:56 Freq: NEEDED Status: Discharge Protocol: Document 03/05/19 10:24 JG (Rec: 03/05/19 11:30 JG [id number]) PT-Bed Mobility Assessment Rolling Type of Rolling Log Rolling,Roll to Right Level of Assist Independent Supine to Sit Supine to Sit Independent Sit to Supine Sit to Supine Independent PT-Transfer Assessment Sit to and From Stand Sit to and from Stand Standby Assistance Equipment Transfer Assistive Device Gait Belt Orthotic/Prosthetic Devices or Brace: No Transfers Transfer Destination Bed Transfer Technique Stand Step Pivot Transfer Ability Level of Assist Standby Assistance Comments Mobility Comments Pt sitting at EOB without soft collar upon assessment. Pt required no more than SBA for sit to/from stand. Pt able to independently don soft collar but required cuing for proper positioning. Demonstrated I bed mobility with log roll and following precautions. Pt left sitting at EOB with needs and call light within reach. Gait Assessment Gait Gait Assistance Required: Standby Assistance Distance (Feet) 150 Able to Maintain Weight Bearing Status Yes During Gait Assistive Devices Assistive Device Gait Belt Orthotic/Prosthetic Devices or Brace: Yes Gait Deviations General Gait Pattern Antalgic,Decreased Stride Length,Decreased Feet Clearance,Wide Based Gait Factors Limiting Gait Function Factors Limiting Gait Function Pain,Poor Safety Awareness Comments Gait Comments Pt ambulates with shuffling gait pattern and decreased feet clearance. Required no more than SBA during ambulation. Pt is impulsive and easily distracted during ambulation, requiring cuing to watch where he is going to avoid obstacles in hallway. Stair Climbing Assessment Evaluation Level of Assist On Stairs Standby Assistance Devices Stair Climbing Assistive Devices Right Railing Technique/Endurance Stair Climbing Direction Ascend and Descend Stair Climbing Technique Step Over Step Number of Steps Climbed 3 Stair Climbing Set # Repetitions (reps) 5 Comments Stair Climbing Comments Pt climbed stairs with SBA and R railing only. Mod cuing to go slowly for safety. M5 PT-IP Objective Assessments Start: 03/04/19 14:56 Freq: NEEDED Status: Discharge Protocol: Document 03/04/19 16:42 AW (Rec: 03/04/19 16:58 AW [id number]) Orientation Orientation/Cognition Level of Alertness Alert Orientation Name,Day of Week,Place, Situation Language Function Ability No Deficits Noted Safety Awareness Decreased Safety Awareness Memory Description No Deficits Noted Gross Range of Motion Upper Extremity ROM Assessment Within Functional Limits Lower Extremity ROM Assessment Within Functional Limits Strength Upper Extremity Strength Assessment Left Impaired Hand unable to extend 3rd, 4th digits left hand Lower Extremity Strength Assessment Within Functional Limits Coordination Assessment Gross Coordination Gross Coordination WNL Sensation Assessment Sensation Gross Sensation WNL M6 PT-IP Treatment Start: 03/04/19 14:56 Freq: NEEDED Status: Discharge Protocol: Document 03/05/19 10:24 JG (Rec: 03/05/19 11:30 JG [id number]) Physical Therapy Treatment Education Education Provided Precautions,Safety Brace Education Donning,Patient Other Treatments Other Treatment Performed Reviewed precautions and donning soft collar. Educated pt to make sure notch is below chin to ensure proper positioning. Disc with pt and caregiver moving more slowly when returning home to ensure safety. M7 PT-IP Assessment and Plan Start: 03/04/19 14:56 Freq: NEEDED Status: Discharge Protocol: Document 03/05/19 10:24 JG (Rec: 03/05/19 11:30 JG [id number]) PT Summary Assessment and Plan Potential Rehabilitation Potential Excellent Status of Condition at Evaluation Stable Summary Impairments Pain,ROM,Strength,Transfers, Gait Progress Towards Goals Progressing Toward Goals,Safe For Discharge Assessment Summary Pt needed no more than SBA for all mobility, ambulation, and stairs. Pt able to articulate precautions with min cuing. Cont to demonstrate impulsivity and poor safety awareness, requiring cues for safety. Pt safe for d/c to home with spouse assist once medically cleared Goals Bed Mobility Goal Independent Transfer Goal Independent Gait Goal Independent Gait Distance 300 Other Goals up/down 17 steps with R rail ascending SBA Days to Meet Goals 1 Frequency of Treatment Frequency Of Treatment Discharge Recommendations To Nursing Amount of Assist Needed Standby Assistance Discharge Recommendations PT Discharge Recommendations Home with Assistance, Outpatient PT
== END 2019-03-05 11:21 | disposition home or self-care (01) ==
LOC: AC 03-05 08:13 → OR 03-05 11:50
PROVIDERS: PCP Family Medicine; Visit Provider Orthopaedic Surgery Orthopaedic Surgery of the Spine
PROC: (CPT 22551; principal; 2019-03-04 07:45)
DX: M48.02 Spinal stenosis, cervical region (principal); M47.22 Other spondylosis with radiculopathy, cervical region; I10 Essential (primary) hypertension; E78.5 Hyperlipidemia, unspecified; F32.9 Major depressive disorder, single episode, unspecified; J45.909 Unspecified asthma, uncomplicated; F41.9 Anxiety disorder, unspecified
CPT/HCPCS: 22551; 22552; 22853 ×2; 72040; 76000; 94640; 97116; 97161; 97165; 97530; C1776; J0330; J0690; J1100; J1170; J2405; J2704; J3010; J3410; J7613

== ENCOUNTER → 2019-12-17 11:39 | Outpatient (CLI) | payer MEDICARE, SELFPAY ==
[2019-03-04 13:12] VITALS: BMI 29.2
--- NOTE | 2019-12-17 | DI.RAD.S_ITS ---
PROCEDURE: XR CERVICAL SPINE 2V OR 3V INDICATIONS: CERVICAL SPONDYLOSIS TECHNIQUE: 3 view(s) of the cervical spine were acquired. COMPARISON: [facility], CR, XR CERVICAL SPINE 2V OR 3V, 03/04/2019, 9:26. [facility], CR, XR CERVICAL SPINE 2V OR 3V, 10/26/2018, 14:41. FINDINGS: Bones: No fractures or dislocations to the T1 level. The lateral masses of C1 appear intact on the odontoid view. No suspicious bony lesions. Prior anterior fusion plate from C5 through C7 is in stable position with relationship to the immediate postoperative imaging dated 03/04/19. Soft tissues: No prevertebral soft tissue swelling. IMPRESSION: Prior anterior fusion plating, C5 through C7, stable over time. Interbody disc prosthesis devices at the 2 intervening levels also appear stable over time. Dictated by: Jareth Olea M.D. on 12/17/2019 at 13:14 Approved by: Jareth Olea M.D. on 12/17/2019 at 13:15
== END ==
PROVIDERS: PCP Family Medicine; Referring Provider Family Medicine; Visit Provider Family Medicine
DX: M47.892 Other spondylosis, cervical region (principal); Z98.1 Arthrodesis status
CPT/HCPCS: 72040

== ENCOUNTER → 2020-08-25 12:19 | Outpatient (CLI) | payer MEDICARE, SELFPAY ==
[2019-03-04 13:12] VITALS: BMI 29.2
[2020-08-25 12:32] LABS: Bacteria Urine None Seen
[2020-08-25 12:56] LABS: Add Manual Diff / Slide Review NO; Basophils Absolute Auto 200 /uL (0-100); Basophils Percent Auto 2.2 % (0-2); Eosinophils Absolute Auto 400 /uL (0-450); Eosinophils Percent Auto 5.6 % (2-4); Hematocrit 39.9 % (41-53); Hemoglobin 13.7 g/dL (13.5-17.5); Lymphocytes Absolute Auto 2400 /uL (1100-4500); Lymphocytes Percent Auto 30.8 % (25-40); Mean Corpuscular HGB Conc 34.4 % (30-36); Mean Corpuscular Hemoglobin 31.5 PG (26-34); Mean Corpuscular Volume 91.5 fL (80-100); Monocytes Absolute Auto 500 /uL (0-900); Monocytes Percent Auto 6.7 % (3-14); Neutrophils Absolute Auto 4200 /uL (1500-7000); Neutrophils Percent Auto 54.7 % (50-75); Platelet Count 292 X10^3/uL (150-400); Red Blood Cell Count 4.36 X10^6/uL (4.5-5.9); Red Cell Distribution Width 14.3 % (11.6-14.8); White Blood Cell Count 7.8 X10^3/uL (4.5-11.0)
[2020-08-25 12:57] LABS: Appearance Urine UA CLEAR; Bilirubin Urine UA NEGATIVE (NEGATIVE); Color Urine UA YELLOW; Glucose Urine UA NEGATIVE (Negative); Ketones Urine UA NEGATIVE (NEGATIVE); Leukocyte Esterase Urine UA NEGATIVE (NEGATIVE); Nitrite Urine UA NEGATIVE (Negative); Occult Blood Urine UA NEGATIVE (Negative); Protein Urine UA NEGATIVE (Negative); Urobilinogen Urine UA 0.2 E.U./dL (0.2); pH Urine UA 6.5 (4.5-8.0)
[2020-08-25 13:08] LABS: Culture Indicated Urine Cult Not Indicated; RBC Urine 0-1/HPF (0-5/HPF); WBC Urine 0-1/HPF (0-5/HPF)
[2020-08-25 13:18] LABS: Alanine Aminotransferase 20 IU/L (<50); Albumin 4.2 g/dL (3.5-5.0); Albumin Globulin Ratio 1.7 (1.0-2.8); Alkaline Phosphatase 89 U/L (38-126); Aspartate Aminotransferase 23 IU/L (17-59); BUN Creatinine Ratio 33.8 (6-22); Bilirubin Total 0.5 mg/dL (0.2-1.3); Blood Urea Nitrogen 25 mg/dL (9-20); Calcium 9.3 mg/dL (8.4-10.2); Carbon Dioxide 26 mmol/L (22-32); Chloride 102 mmol/L (98-107); Cholesterol 139 mg/dL (140-199); Estimated Glomerular Filt Rate > 60.0 mL/min (>60); Globulin 2.5 g/dL (1.7-4.1); Glucose 107 mg/dL (80-110); HDL Cholesterol 39 mg/dL (40-60); HEMOLYSIS < 15 (0-50); LDL Cholesterol Calculated 84 mg/dL (<100); Potassium 4.1 mmol/L (3.4-5.1); Sodium 136 mmol/L (137-145); Total Protein 6.7 g/dL (6.3-8.2); Triglycerides 78 mg/dL (35-150)
[2020-08-25 13:47] LABS: Prostate Specific Antigen Scrn 0.615 ng/mL (0.1-4.0); Thyroid Stimulating Hormone 0.832 uIU/mL (0.47-4.68)
== END ==
PROVIDERS: PCP Family Medicine; Referring Provider Family Medicine; Visit Provider Family Medicine
DX: Z79.899 Other long term (current) drug therapy (principal); E03.9 Hypothyroidism, unspecified; N41.0 Acute prostatitis; F33.9 Major depressive disorder, recurrent, unspecified; E78.00 Pure hypercholesterolemia, unspecified; I10 Essential (primary) hypertension; Z12.5 Encounter for screening for malignant neoplasm of prostate
CPT/HCPCS: 36415; 80053; 80061; 81001; 84443; 85025; G0103

== ENCOUNTER → 2020-12-29 12:28 | Outpatient (CLI) | payer MEDICARE, SELFPAY ==
[2019-03-04 13:12] VITALS: BMI 29.2
--- NOTE | 2020-12-29 | DI.RAD.S_ITS ---
PROCEDURE: XR LUMBAR SPINE 2-3V INDICATIONS: Pain TECHNIQUE: 3 views of the lumbar spine were acquired. COMPARISON: None. FINDINGS: Bones: Minimal convex right thoracolumbar scoliosis present. Vertebral body height and alignment is maintained throughout the exam. There is normal bone mineralization. Disc space narrowing and hypertrophic facet joints are present throughout the exam particularly in the lower lumbar spine. Soft tissues: Overlying bowel gas pattern is normal. No suspicious soft tissue calcifications. Atherosclerotic calcification in the abdominal aorta noted without evidence of aneurysm. IMPRESSION: Multilevel degenerative disc disease and arthropathy without evidence of fracture or malalignment Approved by: Jonnie Thacker M.D. on 12/29/2020 at 15:20
== END ==
PROVIDERS: PCP Family Medicine; Referring Provider Family Medicine; Visit Provider Family Medicine
DX: M54.9 Dorsalgia, unspecified (principal); M51.36 Other intervertebral disc degeneration, lumbar region; M47.816 Spondylosis without myelopathy or radiculopathy, lumbar region
CPT/HCPCS: 72100

== ENCOUNTER → 2021-01-23 18:28 | Outpatient (CLI) | payer MEDICARE, SELFPAY ==
[2019-03-04 13:12] VITALS: BMI 29.2
--- NOTE | 2021-01-23 18:31 | DI.MRI.S_ITS ---
PROCEDURE: MR LUMBAR SPINE WO CON INDICATIONS: Sciatica, left side TECHNIQUE: Noncontrast sagittal T1 spin echo and T2 fast echo, sagittal STIR, axial T1 and T2 fast spin echo through the lumbar spine. In cases with scoliosis, additional coronal T2 fast spin echo may be performed. COMPARISON: [facility], CR, XR LUMBAR SPINE 2-3V, 12/29/2020, 12:36. FINDINGS: Image quality: Excellent. Alignment and Curvature: Trace degenerative retrolisthesis of L2 on L3. Trace degenerative retrolisthesis of L5 on S1. Bone Marrow: Marrow is of normal overall signal. No acute vertebral body compression fractures. Spinal Cord: Conus medullaris terminates at the L1-L2 level. Visualized cord demonstrates normal signal and size. Paraspinous Soft Tissues: No paravertebral masses. T11-T12: No canal stenosis or foraminal stenosis. T12-L1: No canal stenosis or foraminal stenosis. L1-L2: Disc bulge. Facet and ligament hypertrophy. No significant canal stenosis. Mild bilateral foraminal stenosis. L2-L3: Diffuse disc bulge. Facet and ligament hypertrophy. Epidural lipomatosis. Mild canal stenosis. [id number] left foraminal narrowing. L3-L4: Severe disc height loss. Disc bulge. Facet and ligament hypertrophy. Moderate to severe canal stenosis. Mild right foraminal narrowing. Moderate to severe left foraminal narrowing with flattening deformity on the exiting left L3 nerve root. L4-L5: Severe disc height loss. Severe multifactorial spinal stenosis secondary to disc bulge and facet and ligament hypertrophy. There is also epidural lipomatosis. Moderate to severe bilateral foraminal narrowing with a degree of impingement on the exiting bilateral L4 nerve roots. L5-S1: Disc bulge. Facet and ligament hypertrophy. No significant canal stenosis. Bilateral mild to moderate foraminal narrowing with flattening deformity on the exiting bilateral L5 nerve roots. IMPRESSION: 1. Diffuse degenerative change 2. Canal stenosis is mild at L2-L3, moderate to severe at L3-L4, and severe at L4-L5 3. Multilevel facet hypertrophy. 4. Significant multilevel foraminal narrowing as described above. Dictated by: Travis Davis M.D. on 01/24/2021 at 0:18 Approved by: Travis Davis M.D. on 01/24/2021 at 0:25
== END ==
PROVIDERS: PCP Family Medicine; Referring Provider Family Medicine; Visit Provider Family Medicine
DX: M54.32 Sciatica, left side (principal); M47.816 Spondylosis without myelopathy or radiculopathy, lumbar region; M47.817 Spondylosis without myelopathy or radiculopathy, lumbosacral region; M48.061 Spinal stenosis, lumbar region without neurogenic claudication; M48.07 Spinal stenosis, lumbosacral region
CPT/HCPCS: 72148